=== PATIENT | female | born 1980 | race Hispanic/Latino ===

== ENCOUNTER 2018-06-25 21:55 | Inpatient (IN) | payer OTHER ==
[2018-06-25 22:30] VITALS: BMI 25.2
--- NOTE | 2018-06-25 22:36 | PDOC.LDHP ---
Labor and Delivery H&P Chief complaint: contractions HPI: ctx all day. iol scheduled in 1 day Current gestational age (weeks): 40 Due date: 06/25/18 Dating criteria: last menstrual period, first trimester ultrasound Grav: 1 Para: 0 Current complications: none Abnormal US findings: No Current medications: none Previous surgical history: none Allergies/Adverse Reactions: Allergies Allergy/AdvReac Type Severity Reaction Status Date / Time Sulfa (Sulfonamide Allergy Mild Hives Verified 06/25/18 22:22 Antibiotics) Social history: none - Physical Exam Vital signs reviewed and normal: yes General: NAD, resting, breathing through contractions Heart: RRR Lungs: CTAB Abdomen: NTTP Extremeties: trace edema FHT: category 1 - Vaginal Exam cm dilated: 3 Effacement: 90% Station: 0 - OB Labs Blood type: O RH: positive Antibody Screen: negative HIV: negative RPR: negative HEPSAg: negative 1 hour GCT: negative GBS: negative Urine drug screen: not done Rubella: immune - Assessment L&D Assessment: term patient in labor - Plan Plan: admit to L&D, labor augmentation if indicated, anesthesia consult for pain management
[2018-06-25] MEDS ORDERED: Ondansetron PF 4 MG/2 ML Vial IVP PRN (23:16)
[2018-06-25] MEDS ORDERED: Lidocaine 1% (PF) 30 ML VIAL SC PRN (23:16)
[2018-06-25] MEDS ORDERED: Butorphanol Tartrate 1 MG/ML VIAL SLOW IVP PRN (23:16)
[2018-06-25] MEDS ORDERED: Promethazine HCl 25 MG/ML VIAL IM PRN (23:16)
[2018-06-25] MEDS ORDERED: HYDROcodone/Acetaminophen 5/325 mg Tablet PO PRN ×2 (23:16)
[2018-06-25] MEDS ORDERED: NS / Oxytocin 40 units/1000ml 1,000 ML IV PRN (23:16)
[2018-06-25 23:22] LABS: Hemoglobin 12.9 g/dL (12.0-16.0); Mean Corpuscular Hemoglobin 34.4 pg (27.0-31.0); Mean Corpuscular Volume 98.3 fL (78.0-98.0); Mean Platelet Volume 6.9 fL (7.4-10.4); Platelet Count 295 thou/uL (130-400); RBC Distribution Width 11.3 % (11.5-14.5); Red Blood Cell (RBC) Count 3.76 mill/uL (4.20-5.40); White Blood Cell (WBC) Count 9.5 thou/uL (4.8-10.8)
[2018-06-25] MEDS ORDERED: Lactated Ringer's 1,000 ML IV SCH (23:30)
[2018-06-25] MEDS ORDERED: NS w/ Oxytocin 10 units 500 ML IV SCH (23:30)
[2018-06-25] MEDS ORDERED: Fentanyl 4 mcg/Bup 0.1% Cadd 100 ML ONE (23:32)
[2018-06-26 00:01] LABS: HBSAg Index 0.18 S/CO (0-0.99); Hep B Surf Ag Non-Reactive S/CO (NonReactive)
[2018-06-26 00:04] LABS: Syphilis Antibody Nonreactive (Nonreactive); Syphilis Antibody Index 0.07 S/CO (<1.00 Non-Reactive)
[2018-06-26] MEDS ORDERED: ePHEDrine/0.9% NaCl/PF SYRINGE 50 mg/10 ml SLOW IVP PRN (00:09)
[2018-06-26] MEDS ORDERED: Promethazine HCl 25 MG/ML VIAL IM PRN ×3 (00:09→15:24)
[2018-06-26] MEDS ORDERED: diphenhydrAMINE 50 MG/ML VIAL IVP PRN ×3 (00:09→15:24)
[2018-06-26] MEDS ORDERED: Hydrocerin (Eucerin) Cream 120 gm Jar TOP PRN ×2 (00:09→15:24)
[2018-06-26] MEDS ORDERED: Lactated Ringer's 500 ML IV PRN (00:09)
[2018-06-26] MEDS: Lactated Ringer's 1,000 ML IV SCH ×2 (00:09→07:32)
[2018-06-26] MEDS ORDERED: Ondansetron PF 4 MG/2 ML Vial IVP PRN ×3 (00:09→15:24)
[2018-06-26] MEDS ORDERED: Acetaminophen 325 MG TAB PO PRN (00:09)
[2018-06-26] MEDS ORDERED: Naloxone HCl 0.4 mg/ml Vial IVP PRN ×4 (00:09→12:37)
[2018-06-26] MEDS ORDERED: Communication Order-Pharmacy FS SCH ×2 (00:15→12:45)
[2018-06-26] MEDS: Fentanyl 4 mcg/Bupivacaine 0.1% Cassette 100 ML EPIDURAL SCH ×2 (00:16→07:32)
[2018-06-26] MEDS ORDERED: Fentanyl 4 mcg/Bup 0.1% Cadd 100 ML ONE (07:10)
--- NOTE | 2018-06-26 09:03 | PDOC.LDPN ---
Labor & Delivery Progress Note - Subjective Subjective: comfortable - Objective Vital signs reviewed and normal: yes General: resting Dilation: 6 Effacement: 90% Station: 0 FHT: category 2 [place] contractions every: 2-3 AROM: meconium stained fluid (light) IUPC placed: yes FSE placed: yes - Assessment (1) 40 weeks gestation of Code(s): Z3A.40 - 40 WEEKS GESTATION OF Current Visit: Yes Status : Acute Plan: continue plan of care -: A/P: Active labor, FHT min variability, FSE placed, lateral position with O2 with increase in variability noted. AROM with light mec noted. Discussed CS for NRFHT or maternal/ indications.
--- NOTE | 2018-06-26 10:19 | PDOC.LDPN ---
Labor & Delivery Progress Note - Subjective Subjective: comfortable - Objective Vital signs reviewed and normal: yes General: resting Uterine fundus: non tender Dilation: 6 Station: 0 FHT: category 2 [place] contractions every: 3 - Assessment (1) 40 weeks gestation of Code(s): Z3A.40 - 40 WEEKS GESTATION OF Current Visit: Yes Status : Acute -: A/P: Repeat exam with no change since AROM approx 1 hr ago. Cervix is edematous. Pitocin @ 2mu/min for irregular contractions and protracted labor. Discussed CS for NRFHT or for any other indications, discussed I am on the unit and will watch closely.
[2018-06-26] MEDS ORDERED: CEFAZOLIN 2 GM/50 ML BAG ONE (11:27)
[2018-06-26] MEDS ORDERED: Bicitra 30 ML UDCUP ONE (11:27)
--- NOTE | 2018-06-26 11:31 | PDOC.LDPN ---
Labor & Delivery Progress Note - Subjective Subjective: comfortable - Objective Vital signs reviewed and normal: yes General: resting FHT: late decelerations - Assessment (1) 40 weeks gestation of Code(s): Z3A.40 - 40 WEEKS GESTATION OF Current Visit: Yes Status : Acute (2) Non-reassuring heart rate or rhythm affecting management of fetus Code(s): [id number] - Current Visit: Yes Status: Acute Plan: other (To OR for NRFHT, recurrent lates.)
[2018-06-26] MEDS ORDERED: Lidocaine 2% 10 ML INJ ONE (11:39)
[2018-06-26] MEDS ORDERED: Ropivacaine 0.2% 550 ML 750 ML NERVE BLCK SCH (11:45)
[2018-06-26] MEDS ORDERED: Ondansetron PF 4 MG/2 ML Vial ONE (11:45)
[2018-06-26] MEDS ORDERED: ePHEDrine/0.9% NaCl/PF SYRINGE 50 mg/10 ml ONE (11:45)
[2018-06-26] MEDS ORDERED: Atropine Sulfate 1 mg/10 ml Syringe ONE (11:45)
[2018-06-26] MEDS ORDERED: Ketorolac Tromethamine 30 MG/ML VIAL ONE ×2 (11:45→17:17)
[2018-06-26] MEDS ORDERED: Oxytocin 10 UNITS/ML VIAL ONE (11:45)
[2018-06-26] MEDS ORDERED: Bicitra 30 ML UDCUP PO SCH (11:45)
[2018-06-26] MEDS ORDERED: PHENYLEPHRINE-NS 100 MCG/ML 10 ML SYRINGE ONE ×2 (11:45→17:17)
[2018-06-26] MEDS ORDERED: Ropivacaine HCl/PF 750 ML in Premix Bag 1 BAG NERVE BLCK SCH (11:45)
[2018-06-26] MEDS ORDERED: CEFAZOLIN 2 GM/50 ML BAG IVPB SCH (11:45)
[2018-06-26] MEDS ORDERED: Morphine PF 1 MG/ML SYR ONE (12:11)
[2018-06-26] MEDS ORDERED: Bupivacaine 0.25% HCL 30 ML VIAL ONE (12:26)
[2018-06-26] MEDS ORDERED: Ketorolac Tromethamine 30 MG/ML VIAL IVP PRN (12:37)
[2018-06-26] MEDS ORDERED: L&D-Morphine 4 MG/ML VIAL SLOW IVP PRN (12:37)
[2018-06-26] MEDS ORDERED: Promethazine HCl 25 MG SUPP PR PRN ×2 (12:37→15:24)
[2018-06-26] MEDS ORDERED: Ondansetron HCl/PF 4 MG/2 ML Vial IVP PRN (12:37)
[2018-06-26] MEDS ORDERED: Meperidine HCl/PF 25 MG/ML VIAL SLOW IVP PRN (12:37)
[2018-06-26] MEDS ORDERED: Eucerin (Mineral Oil/Petrolatum,White) 30 gm Jar TOP PRN (12:37)
[2018-06-26] MEDS ORDERED: HYDROmorphone 2 MG/ML VIAL SLOW IVP PRN (12:37)
[2018-06-26] MEDS ORDERED: Naloxone HCl 0.4 mg/ml Vial IV PRN ×4 (12:37→15:24)
[2018-06-26] MEDS ORDERED: Ketorolac Tromethamine 30 MG/ML VIAL IVP SCH (12:45)
--- NOTE | 2018-06-26 12:53 | PDOC.OPDEL ---
OB Operative/Delivery Note Delivery Dr/Surgeon: Jonathan Assist: Barber Pre-Delivery Diagnosis: non-reassuring tracing Procedure/Post Delivery Dx: primary low transverse CS (ON Q PUMP PLACEMENT) Weeks gestation: 40 Anesthesia: epidural - Findings A Sex: male Weight: 7 lb 2 oz - Additional Findings/Plan Placenta delivered: spontaneous findings: low transverse hysterotomy without extension, normal tubes, normal ovaries, other (EXTRA UTERINE HORN SUSPECTED, INTRAOP UROLOGY CONSULT DOES NOT LOOK UROLOGIC) Estimated blood loss: 800ML QBL PENDING Compilations/Other Findings: LEFT INFERIOR ASPECT OF [place], BETWEEN BLADDER AND UTERUS 6*3CM MASS, FIRM, SUSPECT EXTRAUTERINE HORN Post delivery plan: routine recovery
[2018-06-26] MEDS ORDERED: Lactated Ringer's 1,000 ML IV SCH (14:58)
[2018-06-26] MEDS ORDERED: HYDROcodone/Acetaminophen 5/325 mg Tablet PO PRN ×2 (14:58)
[2018-06-26] MEDS ORDERED: Lanolin Ointment 7 GM TUBE TOP PRN (14:58)
[2018-06-26] MEDS ORDERED: NS / Oxytocin 40 units/1000ml 1,000 ML IV SCH (14:58)
[2018-06-26] MEDS ORDERED: diphenhydrAMINE 25 MG CAP PO PRN (14:58)
[2018-06-26] MEDS ORDERED: Bisacodyl 10 MG SUPP PR PRN (14:58)
[2018-06-26] MEDS ORDERED: Simethicone Chewable 80 MG TAB PO PRN (14:58)
[2018-06-26] MEDS ORDERED: NO PO,IM,IV OR SC NARCOTICS FOR 12HR EXCEPT BY ANESTHESIA PO SCH (15:24)
[2018-06-26] MEDS: Ondansetron PF 4 MG/2 ML Vial IVP PRN ×2 (15:33→19:25)
[2018-06-26 16:24] LABS: Actual Bicarbonate (HCO3a) 21.3 mEq/L (22-28); Analyzer IN Cardio OR; Base Excess (BEa) -5.3 mEq/L (-2.0 to +3.0)
[2018-06-26] MEDS: Ketorolac Tromethamine 30 MG/ML VIAL IVP PRN (19:40)
--- NOTE | 2018-06-26 20:01 | OP ---
DATE OF PROCEDURE: 06/26/2018 PREOPERATIVE DIAGNOSIS: Nonreassuring heart tones remote from delivery. POSTOPERATIVE DIAGNOSES: Status post primary low transverse section for nonreassuring heart tones and suspected uterine anomaly noted at the time of section. PROCEDURES PERFORMED: 1. Primary low transverse section. 2. Placement of ON-Q nerve block. SURGEON: German Castillo D.O. SLD TEACHER: Jerome Blandon M.D. BRIEF INTRAOPERATIVE CONSULT: Dr. Kelsea Aguilera. COMPLICATIONS: None. FINDINGS: 1. Vigorous male infant, double nuchal cord, weight 7 pounds 2 ounces, Apgars pending at the time dictation to nursery. 2. Low transverse hysterotomy without extension. 3. Soft tissue mass noted at the left inferior aspect of the lower uterine segment which most likely represents an extra uterine horn. 4. Normal appearing fallopian tubes and ovaries bilaterally. 5. Fundus firm after delivery of placenta. PROCEDURE DETAILS: The patient was taken back to the OR with IV fluids running and epidural catheter that was previously placed. When she was in the OR, she was placed in dorsal supine position with a left lateral tilt and the abdomen was prepped and draped in normal fashion for section. Surgeons were scrubbed in and gowned and gloved and anesthesia was tested and found to be adequate. A Pfannenstiel skin incision was made with scalpel and skin incision was carried down through the subcutaneous tissue to the fascia. Once the fascia was reached, it was incised in the midline and extended superior laterally using curved Foster scissors. Venancio clamps were placed at the superior border of the fascia, which was sharply and bluntly dissected off the rectus abdominis muscles in both caudad and cephalad directions allowing adequate space for delivery of the infant. The peritoneal cavity was entered and stretched laterally. An Morris O retractor was placed into the abdominal peritoneal cavity for retraction, visualization and protection of the wound. Immediately on inspection of the lower uterine segment, approximately 4-5 cm mass was noted between the bladder and the uterus. The mass was firm and somewhat mobile. A bladder flap was created and the bladder was dissected away from the planned hysterotomy site. Hysterotomy was made with the scalpel and a Santoyo maneuver was used to extend the incision to rule out delivery for the infant. The infant was delivered through the hysterotomy followed by the body. After the infant was delivered, the nose and mouth were suctioned. The cord was doubly clamped and cut, and the infant was handed off to special care nurses in attendance. Of note, after the delivery of the 's head and prior to delivery of the body, a nuchal cord that was noted to be a double loop was reduced from around the and the body was then delivered without difficulty. After the infant was handed off to special care nurses in attendance, a cord segment was obtained for cord gas and cord blood was collected. The placenta was then delivered with uterine massage. Uterus was exteriorized, massaged to firm, and cleared of clot and debris. The uterus was returned to the abdominal cavity. The uterine hysterotomy was examined with no extensions noted. The palpable mass was again examined and noted to be present. At this time, an intraoperative consult was requested of Urology distribution accounting clerk, Dr. Aguilera for brief evaluation while the patient was open for a laparotomy. The hysterotomy was then closed with Monocryl suture in a running locked fashion. After the hysterotomy was closed, it was inspected and noted to be hemostatic. The bladder flap dissection was gently and bluntly dissected down over the mass. At this time, it was felt that the mass was most likely an extra uterine horn as it palpated to be coming off the lower uterine segment between the bladder and the uterus. At this time, Dr. Aguilera presented and we discussed the case. She evaluated the appearance of the mass and report it would be very unlikely to be urologic in nature. She had a recommendation for a triple scan CT imaging if imaging does not suggest uterine in origin. At this time, the peritoneal layer was then reapproximated. After the peritoneum was reapproximated, the muscle belly and fascia were inspected with no areas of bleeding noted. Two ON-Q catheter tips were placed through the skin and guided through the subcutaneous tissue and fascia. The tips of the catheters were placed and directed down towards the corners of the fascial incision. Once these catheter tips were placed, the fascia was reapproximated with PDS suture. The subcutaneous tissue was irrigated and dried. No areas of bleeding were noted. The skin was reapproximated and closed with 4-0 Monocryl and the skin was dressed with Dermabond dressing. The ON-Q catheter tips were primed with local anesthetic. The pump was assembled. The patient was cleaned and dried. The uterus was massaged and noted to be firm and she was then taken to the recovery room in good condition. ALEJANDRA
[2018-06-26] MEDS: Docusate Calcium (SURFAK) 240 MG CAP PO SCH (20:56)
[2018-06-26] MEDS ORDERED: Ibuprofen 800 MG TAB PO SCH (22:00)
[2018-06-26] MEDS: Ferrous Sulfate 325 MG TAB PO SCH (22:20)
[2018-06-27] MEDS: Ketorolac Tromethamine 30 MG/ML VIAL IVP PRN ×2 (02:06→10:06)
[2018-06-27] MEDS ORDERED: HYDROcodone/Acetaminophen 5/325 mg Tablet PO PRN (03:15)
[2018-06-27 05:41] LABS: Hemoglobin 10.1 g/dL (12.0-16.0); Mean Corpuscular HGB CONC 33.2 g/dL (32.0-36.0); Mean Corpuscular Hemoglobin 33.4 pg (27.0-31.0); Mean Platelet Volume 6.9 fL (7.4-10.4); Platelet Count 239 thou/uL (130-400); RBC Distribution Width 11.3 % (11.5-14.5); Red Blood Cell (RBC) Count 3.04 mill/uL (4.20-5.40); White Blood Cell (WBC) Count 13.1 thou/uL (4.8-10.8)
--- NOTE | 2018-06-27 06:56 | OP ---
DATE OF ENCOUNTER: 06/26/2018 PRIMARY SURGEON: Dr. German Castillo Ms. Ciarra Singh underwent a with primary surgeon, Dr. German Castillo. I served as first a ssist. For complete details, please refer to Dr. Castillo's operative note.
[2018-06-27] MEDS: Ferrous Sulfate 325 MG TAB PO SCH ×2 (08:12→21:32)
[2018-06-27] MEDS: Docusate Calcium (SURFAK) 240 MG CAP PO SCH ×2 (08:18→20:35)
[2018-06-27] MEDS: Prenatal Vitamin 1 TAB PO SCH (08:18)
--- NOTE | 2018-06-27 08:51 | PDOC.PP ---
Post Progress Note Post Day #: 1 Subjective: Sore but pain is very well controlled w onQ. N/V resolved, normal lochia, ambulated to RR. PO intake tolerated: yes Flatus: yes Ambulation: yes Vital Signs (12 hours) Temp Pulse Resp BP Pulse Ox 06/27/18 08:29 97.7 F 65 16 100/56 L 98 06/27/18 03:50 98.1 F 70 20 94/53 L 98 06/26/18 23:36 98.0 F 70 20 99/56 L 93 L Weight Weight 138 lb - Physical Examination General: NAD Respiratory: non-labored breathing Abdominal: no distention Fundus firm & at: below umb Extremities: negative homans (B) Skin: CS incision dry & intact, no rash Neurological: no gross focal deficits Psychiatric: A&Ox3, normal affect Result Diagrams: 06/27/18 05:24 Additional Labs: Post Labs Blood Type O POSITIVE 06/25/18 22:50 Hep Bs Antigen Non-Reactive S/CO (NonReactive) 06/25/18 22:50 (1) 40 weeks gestation of Code(s): Z3A.40 - 40 WEEKS GESTATION OF Status: Acute (2) Non-reassuring heart rate or rhythm affecting management of fetus Code(s): [id number] - Status: Acute - Assessment/Plan POD1 doing well, no concerns. Discussed findings at CS, double nuchal cord, concern for CPD and extra-uterine horn suspected. Continue PP care.
[2018-06-27] MEDS ORDERED: Adacel (T-DAP) 0.5 ML VIAL IM ONE (09:00)
[2018-06-27] MEDS: HYDROcodone/Acetaminophen 5/325 mg Tablet PO PRN ×2 (13:51→20:36)
[2018-06-27] MEDS: Ibuprofen 800 MG TAB PO SCH ×2 (16:08→23:09)
[2018-06-28] MEDS: Ibuprofen 800 MG TAB PO SCH (05:54)
[2018-06-28] MEDS: Ferrous Sulfate 325 MG TAB PO SCH (09:11)
[2018-06-28] MEDS: Docusate Calcium (SURFAK) 240 MG CAP PO SCH (09:31)
[2018-06-28] MEDS: Prenatal Vitamin 1 TAB PO SCH (09:31)
--- NOTE | 2018-06-28 10:21 | PDOC.PP ---
Post Progress Note Post Day #: 2 Subjective: doing well, min pain, request removal of OnQ prior to DC home, breast feeding PO intake tolerated: yes Flatus: yes Ambulation: yes Vital Signs (12 hours) Temp Pulse Resp BP Pulse Ox 06/28/18 03:57 98.0 F 65 18 117/56 L 95 06/27/18 23:16 97.9 F 66 16 105/57 L 97 Weight Weight 138 lb - Physical Examination General: NAD Respiratory: non-labored breathing Abdominal: no distention Fundus firm & at: below umb Extremities: negative homans (B) Skin: CS incision dry & intact, no rash Neurological: no gross focal deficits Psychiatric: A&Ox3, normal affect Result Diagrams: 06/27/18 05:24 Additional Labs: Post Labs Blood Type O POSITIVE 06/25/18 22:50 Hep Bs Antigen Non-Reactive S/CO (NonReactive) 06/25/18 22:50 (1) 40 weeks gestation of Code(s): Z3A.40 - 40 WEEKS GESTATION OF Status: Acute (2) Non-reassuring heart rate or rhythm affecting management of fetus Code(s): [id number] - Status: Acute - Assessment/Plan A/P: POD 2 sp 1CS for NRFHT, no concerns, desires DC home today. Pain medication use PP reviewed.
[2018-06-28 10:48] VITALS: BP 137/68; TEMP 98
== END 2018-06-28 12:10 | disposition home or self-care (01) | DRG 788 ==
LOC: L&D/OP 21:55 → L&D 22:59 → 3SW 06-26 15:00
PROVIDERS: ADMIT Obstetrics & Gynecology; ATTEND Obstetrics & Gynecology
PROC: 10D00Z1 Extraction of Products of Conception, Low, Open Approach (ICD-10-PCS; principal; 2018-06-26)
PROC: 0JH80VZ Insertion of Infusion Pump into Abdomen Subcutaneous Tissue and Fascia, Open Approach (ICD-10-PCS; 2018-06-26)
PROC: 0WHG03Z Insertion of Infusion Device into Peritoneal Cavity, Open Approach (ICD-10-PCS; 2018-06-26)
PROC: 10907ZC Drainage of Amniotic Fluid, Therapeutic from Products of Conception, Via Natural or Artificial Opening (ICD-10-PCS; 2018-06-26)
DX: O76 Abnormality in fetal heart rate and rhythm complicating labor and delivery (principal); O69.81X0 Labor and delivery complicated by cord around neck, without compression, not applicable or unspecified; Z3A.40 40 weeks gestation of pregnancy; Z37.0 Single live birth; O09.513 Supervision of elderly primigravida, third trimester; O34.13 Maternal care for benign tumor of corpus uteri, third trimester
CPT/HCPCS: 36415; 51702; 82805; 85027; 86780; 86850; 86900; 86901; 87340; 88307; 99285; A4306; J0131; J0461; J1885; J2274; J2405; J2590; J2795; S0020